=== PATIENT | female | born 2000 | race African-American/Black ===

== ENCOUNTER 2019-01-08 11:21 | Emergency (ER) | payer BC, OTHER | END 2019-01-08 13:09 | disposition home or self-care (01) | LOC: FER 11:21 ==

== ENCOUNTER 2021-06-10 11:20 | Emergency (ER) | payer BC, OTHER ==
[2021-06-10 11:24] VITALS: BP 130/80; PULSE 88; TEMP 97.9; BMI 43.5
[2021-06-10 12:06] LABS: ALBUMIN 3.6 g/dl (3.4-5.0); BILIRUBIN,TOTAL 0.4 mg/dl (0.2-1); CALCIUM 8.9 mg/dl (8.5-10); CREATININE 0.7 mg/dl (0.55-1.3); TOT PROT 7.1 g/dl (6.4-8.2)
[2021-06-10 12:23] LABS: ANISOCYTOSIS 2+; OVALOCYTE FEW; TARGET CELLS FEW
[2021-06-10 12:54] LABS: RETICULOCYTES 3.48 % (0.5-1.5)
[2021-06-10 13:02] LABS: HEMATOCRIT 24.8 % (32.4-45.2); HEMOGLOBIN 7.4 GM/dL (10.7-15.3); MCH 17.7 pg (25.7-33.7); MCHC 29.8 g/dl (32.0-36.0); MEAN CELL VOLUME 59.6 fl (80-96); PLATELET COUNT 502 10^3/uL (134-434); RBC 4.16 M/mm3 (3.60-5.2); RDW 18.5 % (11.6-15.6)
[2021-06-10 13:04] LABS: BASO % 0.6 % (0-2.0); EOS % 3.7 % (0-4.5); LYMPH % 33.5 % (8-40); MONO % 5.2 % (3.8-10.2)
[2021-06-10 13:05] LABS: ADD RBC MORPHOLOGY YES
[2021-06-10 13:35] LABS: MACROCYTOSIS 0; PLATELET ESTIMATE INCREASED
== END 2021-06-10 12:44 | disposition home or self-care (01) ==
LOC: FER 11:20
DX: D64.9 Anemia, unspecified (principal)
CPT/HCPCS: 36415; 80053; 82728; 83010; 83540; 83550; 83615; 84466; 84703; 85025; 85045; 86850; 86900; 86901; 99283-25; C9803; U0003; U0005

== ENCOUNTER 2021-06-26 04:52 | Day surgery (SDC) | payer BC, OTHER ==
[2021-06-20 14:01] VITALS: BMI 42.9
[2021-06-26] MEDS ORDERED: MIDAZOLAM HCL 2 MG/2 ML SINGLE DOSE VIAL ONE (09:17)
[2021-06-26] MEDS ORDERED: CLINDAMYCIN 600 MG PREMIX BAG IVPB ONE (10:28)
[2021-06-26] MEDS ORDERED: CLINDAMYCIN PHOSPHATE 600 MG/4 ML VIAL ONE ×2 (10:29→10:37)
[2021-06-26] MEDS ORDERED: ONDANSETRON 4 MG/2 ML VIAL IVPUSH PRN (11:03)
[2021-06-26] MEDS ORDERED: ACETAMINOPHEN 325 MG TABLET (FP) PO PRN (11:03)
[2021-06-26] MEDS ORDERED: LACTATED RINGERS SOLUTION 1,000 ML IV SCH (11:15)
[2021-06-26 17:08] LABS: HEMATOCRIT 22.5 % (32.4-45.2); MCHC 29.7 g/dl (32.0-36.0); MEAN CELL VOLUME 55.3 fl (80-96); MEAN PLT VOLUME 8.4 fl (7.5-11.1); PLATELET COUNT 458 10^3/uL (134-434); RBC 4.07 M/mm3 (3.60-5.2); RDW 20.2 % (11.6-15.6); WHITE BLOOD COUNT 13.2 K/mm3 (4.0-10.0)
[2021-06-26 17:20] LABS: MCH 16.4 pg (25.7-33.7)
[2021-06-26 17:21] LABS: HEMOGLOBIN 6.7 GM/dL (10.7-15.3)
[2021-06-26] MEDS ORDERED: SODIUM CHLORIDE 1,000 ML IV SCH (18:00)
[2021-06-26] MEDS: oxyCODONE HCL 5 MG TABLET PO PRN (19:38)
[2021-06-27] MEDS: oxyCODONE HCL 5 MG TABLET PO PRN (02:21)
[2021-06-27 09:06] VITALS: BP 111/75; PULSE 88; TEMP 98.2
== END 2021-06-27 14:15 | disposition home or self-care (01) ==
LOC: JASUSAT 04:52 → JASU-SURG 04:52 → J3W 19:18 → JASUSAT 06-27 14:15
PROVIDERS: ATTEND Obstetrics & Gynecology
PROC: 0UDB7ZZ Extraction of Endometrium, Via Natural or Artificial Opening (ICD-10-PCS; principal; 2021-06-26 09:00)
PROC: 0UJD8ZZ Inspection of Uterus and Cervix, Via Natural or Artificial Opening Endoscopic (ICD-10-PCS; 2021-06-26 09:00)
DX: N92.1 Excessive and frequent menstruation with irregular cycle (principal); D50.0 Iron deficiency anemia secondary to blood loss (chronic); E66.01 Morbid (severe) obesity due to excess calories
CPT/HCPCS: 36415; 36430; 81025; 82962; 85027; 86850; 86900; 86901; 86922; 88305-TC; 94010; 94760; P9058

== ENCOUNTER 2021-10-26 15:30 | Observation (INO) | payer BC, OTHER ==
[2021-10-26 17:22] LABS: ALBUMIN 3.5 g/dl (3.4-5.0); BILIRUBIN,TOTAL 0.4 mg/dl (0.2-1); CALCIUM 8.8 mg/dl (8.5-10); CREATININE 0.6 mg/dl (0.55-1.3)
[2021-10-26 19:04] LABS: BASO % 0.7 % (0-2.0); EOS % 2.3 % (0-4.5); HEMATOCRIT 21.7 % (32.4-45.2); LYMPH % 28.4 % (8-40); MEAN CELL VOLUME 54.1 fl (80-96); MEAN PLT VOLUME 8.3 fl (7.5-11.1); MONO % 4.7 % (3.8-10.2); NEUT % 63.9 % (42.8-82.8); PLATELET COUNT 438 10^3/uL (134-434); RBC 4.01 M/mm3 (3.60-5.2); RDW 20.8 % (11.6-15.6); WHITE BLOOD COUNT 12.5 K/mm3 (4.0-10.0)
[2021-10-26 19:08] LABS: MCH 15.7 pg (25.7-33.7)
[2021-10-26 19:12] LABS: HEMOGLOBIN 6.3 GM/dL (10.7-15.3)
[2021-10-26 20:00] LABS: ANISOCYTOSIS 3+; MACROCYTOSIS 1+; OVALOCYTE 1+; TARGET CELLS 1+
[2021-10-26 22:28] VITALS: BMI 44.6
[2021-10-27 08:12] LABS: CALCIUM 8.8 mg/dl (8.5-10); CREATININE 0.7 mg/dl (0.55-1.3)
[2021-10-27 08:17] VITALS: BP 110/48; PULSE 86; TEMP 98.6
[2021-10-27] MEDS ORDERED: FUROSEMIDE 40 MG/4 ML INJECTABLE VIAL IVPUSH ONE (08:45)
[2021-10-27] MEDS ORDERED: ALBUTEROL SO4 HFA INHALER IH PRN ×2 (08:46→09:06)
[2021-10-27] MEDS ORDERED: metFORMIN HCL 500 MG TABLET (FP) PO SCH (09:00)
[2021-10-27 09:31] LABS: BASO % 0.7 % (0-2.0); EOS % 2.1 % (0-4.5); HEMATOCRIT 27.2 % (32.4-45.2); HEMOGLOBIN 8.5 GM/dL (10.7-15.3); LYMPH % 34.7 % (8-40); MCHC 31.1 g/dl (32.0-36.0); MEAN CELL VOLUME 59.7 fl (80-96); MEAN PLT VOLUME 8.6 fl (7.5-11.1); MONO % 7.2 % (3.8-10.2); NEUT % 55.3 % (42.8-82.8); PLATELET COUNT 389 10^3/uL (134-434); RBC 4.55 M/mm3 (3.60-5.2); RDW 28.4 % (11.6-15.6); WHITE BLOOD COUNT 12.8 K/mm3 (4.0-10.0)
[2021-10-27 09:36] LABS: MCH 18.6 pg (25.7-33.7)
[2021-10-27] MEDS ORDERED: FERROUS SO4 325 MG TABLET (FP) PO SCH (10:00)
== END 2021-10-27 12:42 | disposition home or self-care (01) ==
LOC: FER 15:30 → FM/S 19:35 → INTOOBSV 19:35
PROVIDERS: ADMIT Internal Medicine; ATTEND Nurse Practitioner Acute Care
PROC: 30233N1 Transfusion of Nonautologous Red Blood Cells into Peripheral Vein, Percutaneous Approach (ICD-10-PCS; principal; 2021-10-26)
PROC: 3E033GC Introduction of Other Therapeutic Substance into Peripheral Vein, Percutaneous Approach (ICD-10-PCS; 2021-10-26)
DX: D64.9 Anemia, unspecified (principal); J45.909 Unspecified asthma, uncomplicated; E11.9 Type 2 diabetes mellitus without complications; E66.9 Obesity, unspecified; Z68.41 Body mass index [BMI] 40.0-44.9, adult; Z20.822 Contact with and (suspected) exposure to COVID-19; Z79.4 Long term (current) use of insulin; Z88.0 Allergy status to penicillin; Z91.018 Allergy to other foods
CPT/HCPCS: 36415; 36430; 80048; 80053; 81003; 81015; 82728; 83540; 83550; 84703; 85025; 86850; 86900; 86901; 86922; 87086; 87186; 99285-25; C9803-CS; G0378; P9058; U0003; U0005

== ENCOUNTER 2021-11-15 16:17 | Day surgery (SDC) | payer BC ==
[2021-11-15 16:43] VITALS: BMI 42.8
[2021-11-15] MEDS ORDERED: SODIUM CHLORIDE 1,000 ML IV STA (17:36)
[2021-11-15 21:11] LABS: BASO % 0.6 % (0-2.0); EOS % 4.2 % (0-4.5); HEMATOCRIT 25.7 % (32.4-45.2); HEMOGLOBIN 7.6 GM/dL (10.7-15.3); LYMPH % 24.4 % (8-40); MCH 17.1 pg (25.7-33.7); MCHC 29.7 g/dl (32.0-36.0); MEAN CELL VOLUME 57.8 fl (80-96); MEAN PLT VOLUME 8.7 fl (7.5-11.1); MONO % 4.3 % (3.8-10.2); NEUT % 66.5 % (42.8-82.8); PLATELET COUNT 513 10^3/uL (134-434); RBC 4.44 M/mm3 (3.60-5.2); RDW 25.2 % (11.6-15.6); WHITE BLOOD COUNT 14.5 K/mm3 (4.0-10.0)
[2021-11-15 21:17] LABS: INR 1.15 (0.83-1.09); PROTHROMBIN TIME (PATIENT) 13.3 SEC (9.7-13.0)
[2021-11-15 21:19] LABS: ACTIVATED PTT 27.2 SECONDS (25.2-36.5)
[2021-11-15 21:28] LABS: CALCIUM 9.1 mg/dL (8.5-10.1)
[2021-11-15 21:29] LABS: ALBUMIN 3.2 g/dl (3.4-5.0); BLOOD UREA NITROGEN 7.9 mg/dL (7-18)
[2021-11-15 21:32] LABS: CREATININE 0.8 mg/dL (0.55-1.3)
[2021-11-15 21:33] LABS: BILIRUBIN,TOTAL 0.3 mg/dL (0.2-1)
[2021-11-15 21:50] LABS: ANISOCYTOSIS 3+; MACROCYTOSIS 0; OVALOCYTE 1+; TARGET CELLS 1+
[2021-11-15] MEDS ORDERED: ESTROGENS,CONJUGATED 25 MG VIAL IVPB ONE (23:02)
[2021-11-16 09:34] LABS: BASO % 1.3 % (0-2.0); HEMATOCRIT 31.3 % (32.4-45.2); HEMOGLOBIN 9.8 GM/dL (10.7-15.3); MCHC 31.1 g/dl (32.0-36.0); MEAN CELL VOLUME 62.9 fl (80-96); MEAN PLT VOLUME 9.1 fl (7.5-11.1); MONO % 4.8 % (3.8-10.2); NEUT % 62.9 % (42.8-82.8); PLATELET COUNT 480 10^3/uL (134-434); RBC 4.98 M/mm3 (3.60-5.2); RDW 32.6 % (11.6-15.6); WHITE BLOOD COUNT 16.5 K/mm3 (4.0-10.0)
[2021-11-16 09:35] LABS: MCH 19.6 pg (25.7-33.7)
[2021-11-16] MEDS ORDERED: ESTROGENS,CONJUGATED 25 MG VIAL IVPB ONE (14:15)
[2021-11-16 18:42] VITALS: BP 113/65; PULSE 89; TEMP 98.5
== END 2021-11-16 | disposition home or self-care (01) ==
LOC: JER 16:17 → UNDOADMIN 22:03 → JERBED 22:03 → JASUSAT 11-16 05:24
PROVIDERS: ATTEND Obstetrics & Gynecology
PROC: 30233H1 Transfusion of Nonautologous Whole Blood into Peripheral Vein, Percutaneous Approach (ICD-10-PCS; principal; 2021-11-16)
DX: N92.1 Excessive and frequent menstruation with irregular cycle (principal); D50.0 Iron deficiency anemia secondary to blood loss (chronic); E66.01 Morbid (severe) obesity due to excess calories; E11.9 Type 2 diabetes mellitus without complications
CPT/HCPCS: 36415; 36430; 76830-TC; 80053; 84484; 85025; 85610; 85730; 86850; 86900; 86901; 86922; 93005; 93010; 99285-25; C9803-CS; J1410; P9058; U0003; U0005

== ENCOUNTER 2021-12-11 04:41 | Day surgery (SDC) | payer BC, OTHER ==
[2021-12-08 13:11] VITALS: BMI 42.2
[2021-12-11 12:12] LABS: BASO % 0.9 % (0-2.0); HEMATOCRIT 28.6 % (32.4-45.2); HEMOGLOBIN 8.7 GM/dL (10.7-15.3); LYMPH % 24.6 % (8-40); MCHC 30.3 g/dl (32.0-36.0); MEAN CELL VOLUME 60.3 fl (80-96); MEAN PLT VOLUME 8.4 fl (7.5-11.1); MONO % 5.3 % (3.8-10.2); NEUT % 64.2 % (42.8-82.8); PLATELET COUNT 477 10^3/uL (134-434); RBC 4.74 M/mm3 (3.60-5.2); RDW 28.5 % (11.6-15.6); WHITE BLOOD COUNT 12.1 K/mm3 (4.0-10.0)
[2021-12-11 12:30] LABS: MCH 18.3 pg (25.7-33.7)
[2021-12-11] MEDS ORDERED: FENTANYL CITRATE/PF 50 MCG/ML VIAL ONE ×5 (15:34→17:05)
[2021-12-11] MEDS ORDERED: PROPOFOL 20 ML ONE (15:34)
[2021-12-11] MEDS ORDERED: MIDAZOLAM HCL 2 MG/2 ML SINGLE DOSE VIAL ONE (15:34)
[2021-12-11] MEDS ORDERED: ceFAZolin SODIUM 1 GM VIAL IVPB ONE (16:00)
[2021-12-11] MEDS ORDERED: SILVER NITRATE 75% APPLIC STCK 1 PKT EACH TP ONE (16:19)
[2021-12-11] MEDS ORDERED: oxyCODONE HCL 5 MG TABLET PO PRN (16:54)
[2021-12-11] MEDS ORDERED: ONDANSETRON 4 MG/2 ML VIAL IVPUSH PRN (16:54)
[2021-12-11] MEDS ORDERED: LACTATED RINGERS SOLUTION 1,000 ML IV SCH (17:00)
[2021-12-11 18:09] VITALS: TEMP 97.9
[2021-12-11 19:59] VITALS: BP 135/78; PULSE 84
== END 2021-12-11 19:46 | disposition home or self-care (01) ==
LOC: JASU-SURG 04:41
PROVIDERS: ATTEND Obstetrics & Gynecology
PROC: 0UJD8ZZ Inspection of Uterus and Cervix, Via Natural or Artificial Opening Endoscopic (ICD-10-PCS; 2021-12-11)
PROC: 0UDB7ZZ Extraction of Endometrium, Via Natural or Artificial Opening (ICD-10-PCS; principal; 2021-12-11 13:00)
DX: N92.1 Excessive and frequent menstruation with irregular cycle (principal); D62 Acute posthemorrhagic anemia; E11.9 Type 2 diabetes mellitus without complications; E66.01 Morbid (severe) obesity due to excess calories; Z79.84 Long term (current) use of oral hypoglycemic drugs
CPT/HCPCS: 36415; 81025; 82962; 85025; 88305-TC; 94760

== ENCOUNTER 2022-11-07 10:13 | Observation (INO) | payer BC, OTHER ==
[2022-11-07 10:25] VITALS: BMI 38.5
[2022-11-07 12:12] LABS: INR 1.17 (0.83-1.09); PROTHROMBIN TIME (PATIENT) 13.6 SEC (9.7-13.0)
[2022-11-07 12:15] LABS: ACTIVATED PTT 27.3 SECONDS (25.2-36.5)
[2022-11-07 12:27] LABS: ALBUMIN 3.5 g/dl (3.4-5.0); CALCIUM 9.1 mg/dL (8.5-10.1)
[2022-11-07 12:29] LABS: CREATININE 0.7 mg/dL (0.55-1.3)
[2022-11-07 12:31] LABS: BILIRUBIN,TOTAL 0.5 mg/dL (0.2-1)
[2022-11-07 12:32] LABS: TOT PROT 7.4 g/dl (6.4-8.2)
[2022-11-07 13:09] LABS: EPI CELLS 14 /uL (0-25.1); HYALINE CASTS 7 /uL (0-3.1); PH,URINE 6.5 (5.0-8.0); URINE APPEARANCE TURBID; URINE BACTERIA >9,000 /uL (0-1359); URINE BILIRUBIN NEGATIVE (NEGATIVE); URINE COLOR ORANGE; URINE GLUCOSE (UA) NEGATIVE (NEGATIVE); URINE KETONE NEGATIVE (NEGATIVE); URINE LEUK ESTERASE 2+ (NEGATIVE); URINE NITRITE POSITIVE (NEGATIVE); URINE PROTEIN 2+ (NEGATIVE); URINE RBC 19711 /uL (0-23.9); URINE WBC 521 /uL (0-25.8)
[2022-11-07 13:10] LABS: HCG,QUALITATIVE URINE Negative
[2022-11-07 13:22] LABS: BASO % 1.2 % (0-2.0); EOS % 3.9 % (0-4.5); HEMATOCRIT 22.7 % (32.4-45.2); LYMPH % 36.9 % (8-40); MCHC 26.3 g/dl (32.0-36.0); MEAN PLT VOLUME 8.6 fl (7.5-11.1); MONO % 6.7 % (3.8-10.2); NEUT % 51.3 % (42.8-82.8); PLATELET COUNT 470 10^3/uL (134-434); RBC 4.54 M/mm3 (3.60-5.2); RDW 21.7 % (11.6-15.6); WHITE BLOOD COUNT 10.6 K/mm3 (4.0-10.0)
[2022-11-07 13:25] LABS: MCH 13.2 pg (25.7-33.7)
[2022-11-07 14:23] LABS: ANISOCYTOSIS 0; MACROCYTOSIS 0; OVALOCYTE 1+
[2022-11-07] MEDS ORDERED: ESTROGENS,CONJUGATED 25 MG VIAL IVPB ONE (14:43)
[2022-11-07] MEDS ORDERED: CEFTRIAXONE 1 GM in DEXTROSE 5%-WATER - 100 ML IVPB ONE (15:18)
[2022-11-07] MEDS ORDERED: CEFTRIAXONE 1 GM/50 ML BAG ONE (15:28)
[2022-11-07] MEDS ORDERED: ALBUTEROL SO4 HFA INHALER IH PRN (16:17)
[2022-11-08] MEDS ORDERED: FERROUS SO4 325 MG TABLET (FP) PO SCH (10:00)
[2022-11-08 10:32] LABS: BASO % 0.7 % (0-2.0); EOS % 4.3 % (0-4.5); HEMATOCRIT 26.1 % (32.4-45.2); HEMOGLOBIN 7.2 GM/dL (10.7-15.3); LYMPH % 33.7 % (8-40); MCHC 27.5 g/dl (32.0-36.0); MEAN CELL VOLUME 53.5 fl (80-96); MEAN PLT VOLUME 8.6 fl (7.5-11.1); NEUT % 56.3 % (42.8-82.8); PLATELET COUNT 525 10^3/uL (134-434); RBC 4.88 M/mm3 (3.60-5.2); RDW 23.8 % (11.6-15.6); WHITE BLOOD COUNT 11.3 K/mm3 (4.0-10.0)
[2022-11-08 10:35] LABS: CALCIUM 8.8 mg/dL (8.5-10.1); MCH 14.7 pg (25.7-33.7)
[2022-11-08 10:39] LABS: CREATININE 0.7 mg/dL (0.55-1.3)
[2022-11-08] MEDS ORDERED: IRON SUCROSE INJECTION 200 MG in SODIUM CHLORIDE 90 ML IVPB ONE (12:00)
[2022-11-08 12:08] LABS: MAGNESIUM 2.3 mg/dL (1.8-2.4)
[2022-11-08 12:12] LABS: PHOSPHOROUS 3.7 mg/dL (2.5-4.9)
[2022-11-08 15:15] VITALS: BP 105/56; PULSE 90; RESP 18; TEMP 98
== END 2022-11-08 17:48 | disposition home or self-care (01) ==
LOC: JERFT 10:13 → JER 10:13 → JERBED 15:13 → J5S 22:26
PROVIDERS: ADMIT Internal Medicine; ATTEND Internal Medicine
PROC: 3E03329 Introduction of Other Anti-infective into Peripheral Vein, Percutaneous Approach (ICD-10-PCS; principal; 2022-11-07)
PROC: 3E033GC Introduction of Other Therapeutic Substance into Peripheral Vein, Percutaneous Approach (ICD-10-PCS; 2022-11-07)
DX: J45.909 Unspecified asthma, uncomplicated (principal); E28.2 Polycystic ovarian syndrome; D64.9 Anemia, unspecified; D62 Acute posthemorrhagic anemia; N93.9 Abnormal uterine and vaginal bleeding, unspecified; Z88.0 Allergy status to penicillin; Z91.018 Allergy to other foods
CPT/HCPCS: 36415; 36430; 76830-TC; 80048; 80053; 81003; 83051; 83735; 84100; 84703; 85025; 85379; 85610; 85730; 86850; 86900; 86901; 86922; 99285-25; C9803-CS; G0378; J1410; J1756; P9058; U0003; U0005